=== PATIENT | male | born 1995 | race Caucasian/White ===

== ENCOUNTER 2018-03-12 04:00 | Emergency (ER) | payer OTHER ==
[2018-03-12] MEDS ORDERED: DEXAMETHASONE 4 MG/ML VIAL IVP ONE (04:10)
[2018-03-12] MEDS ORDERED: NS 1,000 ML IV ONE (04:10)
[2018-03-12] MEDS ORDERED: METOCLOPRAMIDE 10 MG/2 ML VIAL IVP ONE (04:10)
[2018-03-12] MEDS ORDERED: KETOROLAC 15 MG/1 ML SDV IVP/IM ONE (04:10)
--- NOTE | 2018-03-12 04:10 | EDPHY ---
H & P Stated Complaint: MIGRAINES SINCE 7 P Time Seen by Provider: 03/12/18 04:10 HPI/ROS: HPI The patient presents with headache which began at about 7:00 p.m. Yesterday which started slowly, has been intermittent though getting progressively worse. The headache is in his occipital region and then radiates forward toward the crown of his head. Is associated with nausea without any vomiting. He has mild photophobia and no phonophobia. He has a history of migraine headaches and this headache feels similar to that. He believes stress provoked his headache today. He has taken Fioricet at home a total of 6 doses without any improvement in his symptoms, so he comes to the emergency department.. REVIEW OF SYSTEMS 10 systems were reviewed and negative with the exception of the elements mentioned in the history of present illness. PMHx: Migraine headache Soc Hx: Nonsmoker PHYSICAL General Appearance: Alert, no distress Eyes: Pupils equal and round no pallor or injection ENT, Mouth: Mucous membranes moist Respiratory: There are no retractions, lungs are clear to auscultation Cardiovascular: Regular rate and rhythm Gastrointestinal: Abdomen is soft and non-tender, no masses, bowel sounds normal Neurological: A&O, moves all extremities Skin: Warm and dry, no rashes Musculoskeletal: Neck is supple non tender Extremities: symmetrical, full range of motion Psychiatric: Patient is oriented X 3, there is no agitation Source: Patient Exam Limitations: No limitations - Personal History Current Tetanus Diphtheria and Acellular Pertussis (TDAP): Yes - Medical/Surgical History Hx Asthma: No Hx Chronic Respiratory Disease: No Hx Diabetes: No Hx Cardiac Disease: No Hx Renal Disease: No Hx Cirrhosis: No Hx Alcoholism: No Hx HIV/AIDS: No Hx Splenectomy or Spleen Trauma: No Other PMH: MIGRAINES - Social History Smoking Status: Never smoked Constitutional: Initial Vital Signs Temperature (C) 36.3 C 03/12/18 04:04 Heart Rate 75 03/12/18 04:04 Respiratory Rate 16 03/12/18 04:04 Blood Pressure 136/87 H 03/12/18 04:04 O2 Sat (%) 98 03/12/18 04:04 O2 Delivery Mode Room Air Allergies/Adverse Reactions: azithromycin [From Zithromax] Allergy (Verified 03/12/18 04:03) Home Medications: Medication Instructions Recorded Fioricet (*) 03/12/18 NK [No Known Home Meds] 03/12/18 Medical Decision Making Differential Diagnosis: 22-year-old man with known migraine headaches presents with headache which started slowly last night and has continued until this morning. This is not improved with his Fioricet at home. Plan for treatment here with migraine cocktail and IV fluids. After about 1 hr I recheck the patient and he is feeling much better. His headache is completely gone. He will be discharged home. I suspect migraine as the cause of his symptoms, I have also considered tension type headache and sinusitis. - Data Points Medications Given: Discontinued Medications Dexamethasone (Decadron Injection) 8 mg IVP EDNOW ONE Stop: 03/12/18 04:11 Last Admin: 03/12/18 04:19 Dose: 8 mg Diphenhydramine HCl (Benadryl Injection) 25 mg IVP EDNOW ONE Stop: 03/12/18 04:15 Last Admin: 03/12/18 04:19 Dose: 25 mg Sodium Chloride (Ns) 1,000 mls @ 3,000 mls/hr IV EDNOW ONE Stop: 03/12/18 04:29 Last Admin: 03/12/18 04:19 Dose: 1,000 mls Ketorolac Tromethamine (Toradol) 15 mg IVP/IM EDNOW ONE Stop: 03/12/18 04:11 Last Admin: 03/12/18 04:20 Dose: 15 mg Metoclopramide HCl (Reglan Injection) 10 mg IVP EDNOW ONE Stop: 03/12/18 04:11 Last Admin: 03/12/18 04:19 Dose: 10 mg Departure - Departure Disposition: Home, Routine, Self-Care Clinical Impression: Migraine headache Qualifiers: Migraine type: unspecified Status migrainosus presence: without status migrainosus Intractability: not intractable Qualified Code(s): G43.909 - Migraine, unspecified, not intractable, without status migrainosus Condition: Good Instructions: Migraine Headache (ED) Additional Instructions: Please make sure to drink plenty of fluids. You should return to the emergency department if your worse in any way. Referrals: Beau Rm DO [Doctor of Osteopathy] - As per Instructions
[2018-03-12 05:29] VITALS: BP 114/56
== END 2018-03-12 05:29 | disposition home or self-care (01) ==
DX: G43.909 Migraine, unspecified, not intractable, without status migrainosus (principal)
CPT/HCPCS: 96374; J1100; J1200; J1885; J2765